=== PATIENT | female | born 1950 | race Caucasian/White ===

== ENCOUNTER 2016-10-11 10:01 | Day surgery (SDC) | payer OTHER ==
[2016-10-11] MEDS ORDERED: PROPOFOL 10 MG/ML EMU IV ONE (11:11)
[2016-10-11 11:59] VITALS: RESP 20; TEMP 97
[2016-10-11 12:10] VITALS: BP 152/75; PULSE 81; O2SAT 96
== END 2016-10-11 12:10 | disposition home or self-care (01) ==
LOC: SURG 10:01
PROVIDERS: ATTEND Surgery
DX: Z12.11 Encounter for screening for malignant neoplasm of colon (principal); Z80.0 Family history of malignant neoplasm of digestive organs; D12.5 Benign neoplasm of sigmoid colon
CPT/HCPCS: 45385; J2001; J2704